=== PATIENT | male | born 2000 | race Caucasian/White ===

== ENCOUNTER 2022-03-26 11:42 | Emergency (ER) | payer OTHER, SELFPAY ==
--- NOTE | ~2022-03-26 | CT_ITS ---
EXAMINATION: CT HEAD WITHOUT CONTRAST CLINICAL INFORMATION: Head injury with positive LOC COMPARISON: None TECHNIQUE: Contiguous axial imaging was performed from the skull base to vertex without intravenous administration of contrast. This CT examination was performed using dose optimization techniques as appropriate, variously including the following: *Automated exposure control *Adjustment of mA and/or kV according to patient size (this includes techniques or standardized protocols for targeted exams where dose is matched to indication/reason for exam; i.e. extremities or head) *Use of iterative reconstruction technique DLP: 1076 mGy-cm FINDINGS: There is no acute intra-axial, extra-axial bleed, masses or midline shift. There is no acute infarction evolution. The lateral ventricles are symmetrical in size and configuration without enlargement. The barlow to white matter difference is maintained. There is no edema bone windows reveal no calvarial abnormality bilateral paranasal sinuses and mastoid air cells are well-aerated. CT/CT head/brain wo IV con IMPRESSION: No acute intracranial process seen.
[2022-03-26 12:59] VITALS: BP 115/71; PULSE 76; RESP 20; TEMP 36.6; O2SAT 99; BMI 22.9
[2022-03-26 20:28] VITALS: BP 139/76; PULSE 78; RESP 17; TEMP 37; O2SAT 98
[2022-03-26] MEDS: Acetaminophen 325 MG TABLET 975 MG PO (21:02)
[2022-03-26] MEDS: Ibuprofen 600 MG TABLET PO (21:02)
--- NOTE | 2022-03-26 21:10 | ED_ITS ---
HPI - Head Injury General Chief complaint: Head Injury Stated complaint: Concussion w loss on consciousness sent by [facility] Time Seen by Provider: 03/26/22 14:35 History of Present Illness HPI Narrative: Patient is a 22-year-old male presenting today after a fall with head strike. Patient states he was on his way to work this morning when he slipped on a wet curve outside his house, falling and striking the right side of his head on the ground. Patient reports he saw stars for a few seconds, denies any loss of consciousness. Patient remembers the entire incident was able to drive himself to the [facility] for evaluation. denies any dizziness or lightheadedness before the fall. Reports nausea and blurred vision initially after the fall, both of which have resolved. Reports headache behind his eyes , 8/10 severity as well as light sensitivity. Denies vomiting, loss of control of bowels/ bladder, numbness, injuries from the fall. MD Complaint: head injury and fall Onset (ago): hour(s) Mechanism of Injury: fall Place: home Loss of Consciousness: no Location of injury: parietal Severity: severe Severity scale (1-10): 8 Radiation: none Associated symptoms: denies other symptoms Related Data Home Medications Medication Instructions Recorded Confirmed No Known Home Meds 03/26/22 03/26/22 Allergies Allergy/AdvReac Type Severity Reaction Status Date / Time No Known Allergies Allergy Verified 03/26/22 12:59 Review of Systems Review of Systems: Constitutional: No Fever, No Chills ENT/Mouth: No sore throat, No Rhinorrhea, No Swallowing Difficulty Eyes: No Eye Pain, No Swelling, No Redness Cardiovascular: No Chest Pain, No SOB, No Orthopnea, No Edema Respiratory: No Cough, No Sputum, No Wheezing, No dyspnea Gastrointestinal: + Nausea, No Vomiting, No Diarrhea, No abdominal Pain, No Hematochezia, No Melena Genitourinary: No Dysuria, No Urinary Frequency, No Hematuria Musculoskeletal: No joint pain, No Myalgias Skin: No Skin Lesions, No rash Neuro: No Weakness, No Numbness, No Dizziness, + Headache Psych: No Anxiety/Panic, No Depression Heme/Lymph: No Bruising, No Lymphadenopathy Endocrine: No Polyuria, No Polydipsia PMFSH Social History Social History Advance Directives: No Advance Directives Information Provided: No Physical Exam Vital Signs: Vital Signs: Last Vital Signs Temp 98.6 F 03/26/22 20:28 Pulse 78 03/26/22 20:28 Resp 17 03/26/22 20:28 BP 139/76 03/26/22 20:28 Pulse Ox 98 03/26/22 20:28 O2 Del Method 03/26/22 20:28 BMI result Body Mass Index 22.9 Const: Other: Appearance: Alert. Oriented X3. No acute distress. appropriately reactive and responsive HEENT: Head atraumatic, normal inspection, PERRLA, no hemotympanum CVS: Normal heart rate and rhythm. Pulses normal. Respiratory: No respiratory distress. Skin: Skin warm and dry. Normal skin color. Normal skin turgor. No rashes. Extremities: moving all extremities spontaneously, no weakness Neuro: Oriented X 3. No motor deficit. No sensory deficit. no cervical or midline tenderness, full range of motion. Course Course Course Narrative: 22-year-old male presenting after fall with head strike. Patient originally evaluated at [facility] initially, and reported to the emergency department for further evaluation. On exam, patient alert and oriented, appropriately responsive, no neuro deficits appreciated. Patient reporting 8 at 10 headache with no associated symptoms. Vital signs stable. Patient has been present in the waiting room for over 9 hours, and has been observed during that time with no progression of symptoms. Tylenol and Motrin administered for headache. Ariane ent educated on return precautions. At this time, patient stable for discharge. CT head/brain wo IV con IMPRESSION: No acute intracranial process seen. Discharge Plan Discharge Clinical Impression: Concussion without loss of consciousness Patient Disposition: Home, Self-Care Instructions: Concussion (ED) Additional Instructions: You evaluated in the emergency department after sustaining a fall. Your CT scan was normal, and you most likely have a mild concussion. Treatment is mental and physical rest. Avoid screen time, take Tylenol and ibuprofen for headache as needed. If you develop new or worsening symptoms call 911 or come back to the ER for further evaluation. Prescriptions: No Action No Known Home Meds Stand Alone Forms: Work/School Release
== END 2022-03-26 21:43 | disposition home or self-care (01) ==
PROVIDERS: Emergency Provider Internal Medicine; PCP Internal Medicine
DX: S06.0X0A Concussion without loss of consciousness, initial encounter (principal); W01.0XXA Fall on same level from slipping, tripping and stumbling without subsequent striking against object, initial encounter; Y93.01 Activity, walking, marching and hiking; Y92.480 Sidewalk as the place of occurrence of the external cause; Y99.9 Unspecified external cause status
CPT/HCPCS: 70450; 99282; 99283; 99284